=== PATIENT | male | born 1950 | race Caucasian/White ===

== ENCOUNTER 2017-11-17 15:21 | Emergency (ER) | payer MEDICARE, OTHER ==
[~2017-11-17] VITALS: Ht 170.2 cm; Wt 99.8 kg
[~2017-11-17 15:21] MED LIST: Adult Low Dose81 MG PO; Roxicodone5 MG PO
[2017-11-17] MEDS ORDERED: Ultram50 MG PO (15:51)
[2017-11-17] MEDS ORDERED: Crutch1 EACH TOP (15:51)
== END 2017-11-17 16:30 | disposition home or self-care (01) ==
LOC: ER 15:21
DX: S82.832A Other fracture of upper and lower end of left fibula, initial encounter for closed fracture (principal); X50.9XXA Other and unspecified overexertion or strenuous movements or postures, initial encounter
CPT/HCPCS: 29505; 99282-25

== ENCOUNTER 2017-11-18 01:28 | Emergency (ER) | payer MEDICARE, OTHER ==
[~2017-11-18] VITALS: Ht 170.2 cm; Wt 99.8 kg
[~2017-11-18 01:28] MED LIST changes: +Crutch1 EACH TOP; +Ultram50 MG PO
== END 2017-11-18 02:59 | disposition home or self-care (01) ==
LOC: ER 01:28
DX: M79.662 Pain in left lower leg (principal); Z79.899 Other long term (current) drug therapy; Z76.0 Encounter for issue of repeat prescription
CPT/HCPCS: 99281